=== PATIENT | female | born 1955 | race African-American/Black ===

== ENCOUNTER 2019-10-14 01:53 | Inpatient (IN) ==
[2019-10-14] MEDS ORDERED: AMIODARONE 150 MG/3 ML VIAL ONE (02:06)
[2019-10-14] MEDS ORDERED: ONDANSETRON 4 MG/2 ML VIAL ONE (02:13)
[2019-10-14] MEDS ORDERED: MIDAZOLAM 2 MG/2 ML VIAL ONE (02:14)
[2019-10-14] MEDS ORDERED: MORPHINE 4 MG/1 ML VIAL ONE (02:14)
[2019-10-14] MEDS ORDERED: AMIODARONE 450 MG/9 ML VIAL IV ONE (02:22)
[2019-10-14] MEDS ORDERED: SODIUM CHLORIDE 0.9% 1,000 ML IV STA (02:27)
[2019-10-14] MEDS ORDERED: AMIODARONE INJ 150 MG in DEXTROSE 5% 100 ML IV STA (02:27)
[2019-10-14] MEDS ORDERED: ONDANSETRON 4 MG/2 ML VIAL IV STA (02:28)
[2019-10-14] MEDS ORDERED: MIDAZOLAM 2 MG/2 ML VIAL IV STA (02:28)
[2019-10-14] MEDS: AMIODARONE INJ 450 MG in DEXTROSE 5% 241 ML IV SCH ×4 (02:30→17:16)
[2019-10-14 03:20] LABS: Basophils % 0.2 % (0.0-0.8); Eosinophils # 0.1 10*3/uL (0.0-0.87); Eosinophils % 1.3 % (0.00-10.9); Hematocrit 35.5 VOL% (35.7-47.0); Hemoglobin 10.7 GM/DL (12.0-16.0); Immature Granulocytes % 0.2 %; Immature Granulocytes Absolute 0.01 #; Lymphocytes % 21.4 % (21.3-54.2); Mean Corpuscular HGB Conc 30.1 GM/DL (32-36); Mean Corpuscular Volume 92.9 FL (87-102); Mean Platelet Volume 9.5 FL (9.6-12.0); Monocytes % 6.7 % (1.7-12.7); Neutrophils % 70.2 % (38.7-73.9); Platelet Count 163 T/CUMM (130-400); Red Blood Count 3.82 MC/CUMM (3.8-5.5); Red Cell Distribution Width 13.6 % (9.3-17.3); White Blood Count 4.5 T/CUMM (4-12)
[2019-10-14 03:29] LABS: INR 2.2; Partial Thromboplastin Time 31.5 SECS (23.9-33.8)
[2019-10-14 03:35] LABS: PT Patient Result 22.2 SECS (9.8-11.9)
[2019-10-14 04:00] LABS: Alanine Aminotransferase 51 U/L (13-56); Alkaline Phosphatase 145 U/L (45-117); Aspartate Amino Transferase 67 U/L (0-37); Bilirubin,Total < 0.39 MG/DL (0.2-1.0); Blood Urea Nitrogen 27 MG/DL (7-18); Calcium 7.9 MG/DL (8.5-10.1); Glucose 107 MG/DL (74-106); Osmolality,Calculated 290.8 MOS/KG (273-304); Total Protein 6.8 G/DL (6.4-8.3)
[2019-10-14 04:02] LABS: Estimated Glom Filtration Rate 0 ML/MIN
[2019-10-14] MEDS ORDERED: ONDANSETRON 4 MG/2 ML VIAL IV PRN (04:30)
[2019-10-14 05:19] LABS: Amorphous Crystals,Urine Occasional /HPF (Few); Apearance,Urine Slightly Hazy (Clear); Bacteria,Urine Occasional /HPF (Few); Bilirubin,Urine Negative (Negative); Blood, Urine Small mg/dL (Negative); Glucose,Urine (UA) Negative (Negative); Hyaline Casts,Urine 10 /LPF (0-3); Ketones,Urine Negative (Negative); Mucus,Urine Occasional /LPF (Occasional); Nitrite,Urine Negative (Negative); Protein,Urine Negative; RBC,Urine 5 /HPF (0-4); Squamous Epithelial Cell,Urine Occasional /HPF (0-10); Urine Color Yellow (Yellow); Urine Urobilinogen < 2.0 EU/DL (0.2-1.0); WBC,Urine 78 /HPF (0-6)
[2019-10-14 05:34] LABS: Barbiturates Screen,Urine Negative (Negative); Benzodiazepines Screen,Urine Positive (Negative); Cannabinoid Screen,Urine Negative (Negative); Opiate Screen,Urine Negative (Negative); Phencyclidine Screen,Urine Negative (Negative)
[2019-10-14 06:38] LABS: Basophils % 0.3 % (0.0-0.8); Eosinophils % 0.3 % (0.00-10.9); Hematocrit 38.1 VOL% (35.7-47.0); Hemoglobin 11.4 GM/DL (12.0-16.0); Immature Granulocytes % 0.3 %; Immature Granulocytes Absolute 0.02 #; Lymphocytes # 1.6 10*3/uL (1.4-4.0); Lymphocytes % 21.3 % (21.3-54.2); Mean Corpuscular HGB Conc 29.9 GM/DL (32-36); Mean Corpuscular Volume 92.9 FL (87-102); Mean Platelet Volume 9.7 FL (9.6-12.0); Monocytes % 8.6 % (1.7-12.7); Neutrophils % 69.2 % (38.7-73.9); Platelet Count 183 T/CUMM (130-400); Red Cell Distribution Width 13.5 % (9.3-17.3); White Blood Count 7.5 T/CUMM (4-12)
[2019-10-14 07:43] LABS: Alanine Aminotransferase 55 U/L (13-56); Albumin 3.1 G/DL (3.4-5.0); Alkaline Phosphatase 138 U/L (45-117); Aspartate Amino Transferase 76 U/L (0-37); Bilirubin,Total < 0.39 MG/DL (0.2-1.0); Blood Urea Nitrogen 29 MG/DL (7-18); Calcium 8.1 MG/DL (8.5-10.1); Estimated Glom Filtration Rate 63 ML/MIN; Glucose 91 MG/DL (74-106); Total Protein 7.5 G/DL (6.4-8.3)
[2019-10-14] MEDS ORDERED: CARBAMAZEPINE 400 MG PO SCH (09:00)
[2019-10-14] MEDS: FERROUS SULFATE 325 MG TABLET PO SCH (09:26)
[2019-10-14] MEDS: SPIRONOLACTONE 25 MG TABLET PO SCH (09:26)
[2019-10-14] MEDS: SACUBITRIL/VALSARTAN 49-51 MG TABLET PO SCH ×2 (09:26→21:36)
[2019-10-14] MEDS: carvediloL 25 MG TABLET PO SCH ×2 (09:26→21:37)
[2019-10-14] MEDS: ATORVASTATIN 20 MG TABLET PO SCH (09:26)
[2019-10-14] MEDS: CYCLOBENZAPRINE 10 MG TABLET PO SCH ×3 (09:26→21:37)
[2019-10-14] MEDS: MELOXICAM 7.5 MG TABLET PO SCH (09:26)
[2019-10-14] MEDS: GABAPENTIN 600 MG TABLET PO SCH ×3 (09:26→21:36)
[2019-10-14] MEDS: FUROSEMIDE 40 MG TABLET PO SCH (09:27)
[2019-10-14] MEDS: PANTOPRAZOLE 40 MG VIAL IV SCH (09:27)
[2019-10-14] MEDS: amLODIPine 5 MG TABLET PO SCH (09:27)
[2019-10-14] MEDS ORDERED: WARFARIN 5 MG TABLET PO SCH (18:00)
[2019-10-14] MEDS ORDERED: AMIODARONE 200 MG TABLET PO ONE ×2 (18:20→19:00)
[2019-10-14] MEDS ORDERED: AMIODARONE 200 MG TABLET PO SCH (21:00)
[2019-10-14] MEDS: AMIODARONE 200 MG TABLET PO SCH (21:36)
[2019-10-15] MEDS: AMIODARONE INJ 450 MG in DEXTROSE 5% 241 ML IV SCH ×4 (00:07→16:43)
[2019-10-15] MEDS: LEVOTHYROXINE 112 MCG TABLET PO SCH (06:06)
[2019-10-15 07:00] LABS: INR 1.7
[2019-10-15] MEDS: AMIODARONE 200 MG TABLET PO SCH ×3 (08:43→22:56)
[2019-10-15] MEDS: FERROUS SULFATE 325 MG TABLET PO SCH (08:43)
[2019-10-15] MEDS: GABAPENTIN 600 MG TABLET PO SCH ×3 (08:44→21:10)
[2019-10-15] MEDS: SACUBITRIL/VALSARTAN 49-51 MG TABLET PO SCH ×2 (08:44→21:09)
[2019-10-15] MEDS: FUROSEMIDE 40 MG TABLET PO SCH (08:44)
[2019-10-15] MEDS: MELOXICAM 7.5 MG TABLET PO SCH (08:44)
[2019-10-15] MEDS: ATORVASTATIN 20 MG TABLET PO SCH (08:44)
[2019-10-15] MEDS: SPIRONOLACTONE 25 MG TABLET PO SCH (08:44)
[2019-10-15] MEDS: amLODIPine 5 MG TABLET PO SCH (08:44)
[2019-10-15] MEDS: CYCLOBENZAPRINE 10 MG TABLET PO SCH ×3 (08:44→21:09)
[2019-10-15] MEDS: carvediloL 25 MG TABLET PO SCH ×2 (08:44→21:09)
[2019-10-15] MEDS: PANTOPRAZOLE 40 MG VIAL IV SCH (08:45)
[2019-10-15] MEDS ORDERED: ENOXAPARIN 100 MG/ML SYRINGE SUBCUT ONE (14:12)
[2019-10-15] MEDS ORDERED: ASPIRIN CHEW 81 MG TABLET PO ONE (14:13)
[2019-10-16 05:47] LABS: Basophils % 0.3 % (0.0-0.8); Eosinophils # 0.2 10*3/uL (0.0-0.87); Eosinophils % 3.4 % (0.00-10.9); Hematocrit 35.5 VOL% (35.7-47.0); Immature Granulocytes % 0.2 %; Immature Granulocytes Absolute 0.01 #; Lymphocytes # 1.6 10*3/uL (1.4-4.0); Lymphocytes % 26.6 % (21.3-54.2); Mean Corpuscular Volume 89.4 FL (87-102); Mean Platelet Volume 10.3 FL (9.6-12.0); Monocytes % 12.8 % (1.7-12.7); Neutrophils % 56.7 % (38.7-73.9); Platelet Count 164 T/CUMM (130-400); Red Blood Count 3.97 MC/CUMM (3.8-5.5); Red Cell Distribution Width 13.3 % (9.3-17.3); White Blood Count 6.1 T/CUMM (4-12)
[2019-10-16 05:52] LABS: INR 1.6
[2019-10-16 06:15] LABS: Alanine Aminotransferase 35 U/L (13-56); Alkaline Phosphatase 127 U/L (45-117); Aspartate Amino Transferase 41 U/L (0-37); Blood Urea Nitrogen 20 MG/DL (7-18); Calcium 8.6 MG/DL (8.5-10.1); Estimated Glom Filtration Rate 107 ML/MIN; Glucose 88 MG/DL (74-106); Osmolality,Calculated 282.3 MOS/KG (273-304); Total Protein 7.7 G/DL (6.4-8.3)
[2019-10-16] MEDS: LEVOTHYROXINE 112 MCG TABLET PO SCH (06:37)
[2019-10-16] MEDS ORDERED: DIAZEPAM 5 MG TABLET PO ONE (08:13)
[2019-10-16] MEDS ORDERED: diphenhydrAMINE CAP 25 MG CAPSULE PO ONE (08:13)
[2019-10-16] MEDS ORDERED: SODIUM CHLORIDE 0.45% 1,000 ML IV SCH (08:30)
[2019-10-16] MEDS: AMIODARONE 200 MG TABLET PO SCH ×2 (09:08→21:24)
[2019-10-16] MEDS: amLODIPine 5 MG TABLET PO SCH (09:09)
[2019-10-16] MEDS: ASPIRIN CHEW 81 MG TABLET PO SCH (09:09)
[2019-10-16] MEDS: carvediloL 25 MG TABLET PO SCH ×2 (09:09→21:23)
[2019-10-16] MEDS: MELOXICAM 7.5 MG TABLET PO SCH (09:09)
[2019-10-16] MEDS: ATORVASTATIN 20 MG TABLET PO SCH (09:09)
[2019-10-16] MEDS: SACUBITRIL/VALSARTAN 49-51 MG TABLET PO SCH ×2 (09:09→21:23)
[2019-10-16] MEDS: CYCLOBENZAPRINE 10 MG TABLET PO SCH ×3 (09:09→21:23)
[2019-10-16] MEDS: GABAPENTIN 600 MG TABLET PO SCH ×3 (09:09→21:24)
[2019-10-16] MEDS: FUROSEMIDE 40 MG TABLET PO SCH (09:09)
[2019-10-16] MEDS: SPIRONOLACTONE 25 MG TABLET PO SCH (09:09)
[2019-10-16] MEDS: FERROUS SULFATE 325 MG TABLET PO SCH (09:10)
[2019-10-16] MEDS: PANTOPRAZOLE 40 MG VIAL IV SCH (09:10)
[2019-10-16] MEDS ORDERED: MIDAZOLAM 2 MG/2 ML VIAL ONE ×2 (12:12→12:48)
[2019-10-16] MEDS ORDERED: LIDOCAINE 1% 20 ML VIAL ONE (12:12)
[2019-10-16] MEDS ORDERED: fentaNYL 100 MCG/2 ML VIAL ONE (12:12)
[2019-10-16] MEDS ORDERED: SODIUM CHLORIDE 0.9% 1,000 ML IV SCH (14:30)
[2019-10-16] MEDS ORDERED: WARFARIN 5 MG TABLET PO SCH (18:00)
[2019-10-16] MEDS: CARBAMAZEPINE 400 MG PO SCH (21:25)
[2019-10-17] MEDS ORDERED: VANCOMYCIN INJ 1,000 MG in SODIUM CHLORIDE 0.9% 250 ML IV ONE (06:00)
[2019-10-17] MEDS ORDERED: VANCOMYCIN 500 MG VIAL IRRIG ONE (06:00)
[2019-10-17] MEDS ORDERED: SODIUM CHLORIDE 0.9% 1,000 ML IV SCH (06:00)
[2019-10-17] MEDS: LEVOTHYROXINE 112 MCG TABLET PO SCH (07:00)
[2019-10-17 07:43] LABS: Basophils % 0.4 % (0.0-0.8); Eosinophils # 0.2 10*3/uL (0.0-0.87); Eosinophils % 3.9 % (0.00-10.9); Hematocrit 37.8 VOL% (35.7-47.0); Hemoglobin 11.7 GM/DL (12.0-16.0); Immature Granulocytes % 0.2 %; Immature Granulocytes Absolute 0.01 #; Lymphocytes # 1.5 10*3/uL (1.4-4.0); Lymphocytes % 28.2 % (21.3-54.2); Mean Corpuscular Volume 90.9 FL (87-102); Mean Platelet Volume 9.5 FL (9.6-12.0); Monocytes % 11.8 % (1.7-12.7); Neutrophils % 55.5 % (38.7-73.9); Platelet Count 185 T/CUMM (130-400); Red Blood Count 4.16 MC/CUMM (3.8-5.5); Red Cell Distribution Width 13.2 % (9.3-17.3); White Blood Count 5.4 T/CUMM (4-12)
[2019-10-17 07:54] LABS: INR 1.2
[2019-10-17 08:15] LABS: Calcium 8.7 MG/DL (8.5-10.1); Osmolality,Calculated 276.5 MOS/KG (273-304)
[2019-10-17 08:18] LABS: Bilirubin,Total 0.4 MG/DL (0.2-1.0); Calcium 8.9 MG/DL (8.5-10.1); Osmolality,Calculated 274.7 MOS/KG (273-304); Risk Ratio 2.53; Total Protein 8.1 G/DL (6.4-8.3)
[2019-10-17] MEDS ORDERED: LIDOCAINE 1% 20 ML VIAL ONE (09:30)
[2019-10-17] MEDS ORDERED: VANCOMYCIN 500 MG VIAL ONE ×2 (09:31→12:22)
[2019-10-17] MEDS: AMIODARONE 200 MG TABLET PO SCH ×2 (10:18→21:32)
[2019-10-17] MEDS: SPIRONOLACTONE 25 MG TABLET PO SCH (10:18)
[2019-10-17] MEDS: SACUBITRIL/VALSARTAN 49-51 MG TABLET PO SCH ×2 (10:18→21:34)
[2019-10-17] MEDS: FERROUS SULFATE 325 MG TABLET PO SCH (10:18)
[2019-10-17] MEDS: carvediloL 25 MG TABLET PO SCH ×2 (10:18→21:32)
[2019-10-17] MEDS: ASPIRIN CHEW 81 MG TABLET PO SCH (10:18)
[2019-10-17] MEDS: CARBAMAZEPINE 400 MG PO SCH (10:18)
[2019-10-17] MEDS: PANTOPRAZOLE 40 MG VIAL IV SCH (10:19)
[2019-10-17] MEDS: FUROSEMIDE 40 MG TABLET PO SCH (10:19)
[2019-10-17] MEDS: MELOXICAM 7.5 MG TABLET PO SCH (10:19)
[2019-10-17] MEDS: CYCLOBENZAPRINE 10 MG TABLET PO SCH ×3 (10:19→21:32)
[2019-10-17] MEDS: amLODIPine 5 MG TABLET PO SCH (10:19)
[2019-10-17] MEDS: GABAPENTIN 600 MG TABLET PO SCH ×3 (10:19→21:35)
[2019-10-17] MEDS: ATORVASTATIN 20 MG TABLET PO SCH (10:19)
[2019-10-17] MEDS ORDERED: TISSUE ADHESIVE 1 EACH APPLICATOR TOP ONE (11:37)
[2019-10-17] MEDS ORDERED: MIDAZOLAM 2 MG/2 ML VIAL ONE (13:41)
[2019-10-17] MEDS ORDERED: fentaNYL 100 MCG/2 ML VIAL ONE (13:41)
[2019-10-17] MEDS ORDERED: LIDOCAINE 2% 5 ML VIAL ONE (13:41)
[2019-10-17] MEDS ORDERED: propofoL 200 MG/20 ML VIAL IV ONE (13:41)
[2019-10-17] MEDS ORDERED: ETOMIDATE 40 MG/20 ML VIAL IV ONE (13:42)
[2019-10-17] MEDS ORDERED: ePHEDrine 50 MG/ML AMP ONE (13:42)
[2019-10-17] MEDS ORDERED: ONDANSETRON 4 MG/2 ML VIAL ONE (13:42)
[2019-10-17] MEDS ORDERED: PHENYLEPHRINE 1 MG/10 ML SYRINGE IV ONE (13:42)
[2019-10-17] MEDS ORDERED: PHENYLEPHRINE 10 MG/1 ML VIAL IV ONE (13:42)
[2019-10-17] MEDS ORDERED: GLYCOPYRROLATE 0.4 MG/2 ML VIAL ONE (13:42)
[2019-10-17] MEDS ORDERED: SEVOFLURANE 1 UNIT/15 MINUTE INH ONE (13:43)
[2019-10-17] MEDS ORDERED: SODIUM CHLORIDE 0.9% 1,000 ML IV ONE (13:43)
[2019-10-17] MEDS ORDERED: NEOSTIGMINE 10 MG/10 ML VIAL ONE (13:43)
[2019-10-17] MEDS ORDERED: SODIUM CHLORIDE 0.9% 250 ML IV ONE (13:43)
[2019-10-17] MEDS ORDERED: ROCURONIUM 100 MG/10 ML VIAL IV ONE (13:43)
[2019-10-17] MEDS: traMADol 50 MG TABLET PO PRN ×2 (16:21→21:33)
[2019-10-18] MEDS: CARBAMAZEPINE 400 MG PO SCH ×3 (02:21→21:34)
[2019-10-18 06:01] LABS: Basophils % 0.3 % (0.0-0.8); Eosinophils # 0.1 10*3/uL (0.0-0.87); Eosinophils % 1.5 % (0.00-10.9); Hematocrit 31.9 VOL% (35.7-47.0); Hemoglobin 9.9 GM/DL (12.0-16.0); Immature Granulocytes % 0.3 %; Immature Granulocytes Absolute 0.02 #; Lymphocytes # 1.2 10*3/uL (1.4-4.0); Lymphocytes % 17.2 % (21.3-54.2); Mean Corpuscular Volume 89.9 FL (87-102); Monocytes % 13.1 % (1.7-12.7); Neutrophils % 67.6 % (38.7-73.9); Red Blood Count 3.55 MC/CUMM (3.8-5.5); Red Cell Distribution Width 13.2 % (9.3-17.3); White Blood Count 6.8 T/CUMM (4-12)
[2019-10-18 06:12] LABS: Platelet Count 146 T/CUMM (130-400)
[2019-10-18 06:20] LABS: Calcium 7.8 MG/DL (8.5-10.1); Osmolality,Calculated 278.3 MOS/KG (273-304)
[2019-10-18] MEDS: LEVOTHYROXINE 112 MCG TABLET PO SCH (06:36)
[2019-10-18] MEDS: SACUBITRIL/VALSARTAN 49-51 MG TABLET PO SCH ×2 (10:22→21:35)
[2019-10-18] MEDS: MELOXICAM 7.5 MG TABLET PO SCH (10:23)
[2019-10-18] MEDS: SPIRONOLACTONE 25 MG TABLET PO SCH (10:24)
[2019-10-18] MEDS: AMIODARONE 200 MG TABLET PO SCH ×2 (10:24→21:36)
[2019-10-18] MEDS: ATORVASTATIN 20 MG TABLET PO SCH (10:24)
[2019-10-18] MEDS: carvediloL 25 MG TABLET PO SCH ×2 (10:24→21:39)
[2019-10-18] MEDS: ASPIRIN CHEW 81 MG TABLET PO SCH (10:24)
[2019-10-18] MEDS: FERROUS SULFATE 325 MG TABLET PO SCH (10:24)
[2019-10-18] MEDS: GABAPENTIN 600 MG TABLET PO SCH ×3 (10:24→21:36)
[2019-10-18] MEDS: CYCLOBENZAPRINE 10 MG TABLET PO SCH ×3 (10:24→21:36)
[2019-10-18] MEDS: FUROSEMIDE 40 MG TABLET PO SCH (10:24)
[2019-10-18] MEDS: amLODIPine 5 MG TABLET PO SCH (10:24)
[2019-10-18] MEDS: PANTOPRAZOLE 40 MG VIAL IV SCH (10:26)
[2019-10-18] MEDS: traMADol 50 MG TABLET PO PRN ×2 (12:22→21:36)
[2019-10-19] MEDS: LEVOTHYROXINE 112 MCG TABLET PO SCH (06:31)
[2019-10-19 07:01] LABS: Basophils % 0.2 % (0.0-0.8); Eosinophils # 0.1 10*3/uL (0.0-0.87); Eosinophils % 2.6 % (0.00-10.9); Hematocrit 31.5 VOL% (35.7-47.0); Hemoglobin 9.4 GM/DL (12.0-16.0); Immature Granulocytes % 0.2 %; Immature Granulocytes Absolute 0.01 #; Lymphocytes # 1.4 10*3/uL (1.4-4.0); Lymphocytes % 27.7 % (21.3-54.2); Mean Corpuscular HGB Conc 29.8 GM/DL (32-36); Mean Corpuscular Volume 92.4 FL (87-102); Mean Platelet Volume 9.7 FL (9.6-12.0); Monocytes % 13.4 % (1.7-12.7); Neutrophils % 55.9 % (38.7-73.9); Red Blood Count 3.41 MC/CUMM (3.8-5.5); Red Cell Distribution Width 13.3 % (9.3-17.3)
[2019-10-19 07:10] LABS: INR 1.2; PT Patient Result 13.1 SECS (9.8-11.9)
[2019-10-19 07:15] LABS: Platelet Count 115 T/CUMM (130-400)
[2019-10-19 07:17] LABS: Calcium 7.9 MG/DL (8.5-10.1); Osmolality,Calculated 276.4 MOS/KG (273-304)
[2019-10-19] MEDS ORDERED: WARFARIN 10 MG TABLET PO ONE (08:15)
[2019-10-19 09:00] VITALS: BP 120/73
[2019-10-19] MEDS: MELOXICAM 7.5 MG TABLET PO SCH (09:16)
[2019-10-19] MEDS: SACUBITRIL/VALSARTAN 49-51 MG TABLET PO SCH (09:17)
[2019-10-19] MEDS: ASPIRIN CHEW 81 MG TABLET PO SCH (09:18)
[2019-10-19] MEDS: FERROUS SULFATE 325 MG TABLET PO SCH (09:18)
[2019-10-19] MEDS: GABAPENTIN 600 MG TABLET PO SCH (09:18)
[2019-10-19] MEDS: AMIODARONE 200 MG TABLET PO SCH (09:18)
[2019-10-19] MEDS: SPIRONOLACTONE 25 MG TABLET PO SCH (09:18)
[2019-10-19] MEDS: ATORVASTATIN 20 MG TABLET PO SCH (09:18)
[2019-10-19] MEDS: carvediloL 25 MG TABLET PO SCH (09:18)
[2019-10-19] MEDS: CYCLOBENZAPRINE 10 MG TABLET PO SCH (09:18)
[2019-10-19] MEDS: amLODIPine 5 MG TABLET PO SCH (09:18)
[2019-10-19] MEDS: PANTOPRAZOLE 40 MG VIAL IV SCH (09:19)
[2019-10-19] MEDS: CARBAMAZEPINE 400 MG PO SCH (09:19)
[2019-10-19] MEDS: FUROSEMIDE 40 MG TABLET PO SCH (09:19)
== END 2019-10-19 11:02 | disposition home or self-care (01) | DRG 225 ==
LOC: EDUNIT# → EDBD → N.ED 01:53 → N.EDINP 01:53 → N.TELEN 05:24
PROVIDERS: ADMIT Family Medicine; ATTEND Family Medicine
PROC: CLCCHCL (ICD-10-PCS; 2019-10-16 13:45)